=== PATIENT | male | born 1950 | race Caucasian/White ===

== ENCOUNTER 2016-12-29 17:43 | Emergency (ER) | payer MEDICARE, MEDICAID ==
[~2016-12-29] VITALS: Ht 175.3 cm; Wt 68.0 kg
[~2016-12-29 17:43] MED LIST: /CLOT10TR; /LANS30GR; AMLO5TAB2 PO; ARTHROTEC; ASPI1TAB PO; ASPI325T; ATEN50TA2; ATEN50TA2 PO; BISO10TA6 PO; CRES20TA PO; DARV100T; ENAL20TA; ENAL20TA PO; FISH1000 PO; FLON0.05; HYDR25TA6; LISI10TA2 PO; NITR0.4S; NITR4TASL SL; NUCY50TA PO; PREG100CA; SIMV40TA2; TYLENOL ES; VASO20TA; ZEBE5TAB
[2016-12-29] MEDS ORDERED: GOLYLQ PO (18:04)
[2016-12-29 20:15] LABS: BASO % 0.3 % (0.0-1.0); EOS # 0.1 K/mm3 (0.0-0.50); EOS % 1.5 % (0.0-3.0); LARGE UNSTAINED CELL # 0.1 K/mm3 (0.0-0.4); LARGE UNSTAINED CELL % 2.1 % (0.0-4.0); LYMPH # 1.8 K/mm3 (1.5-4.5); LYMPH % 28.2 % (24.0-44.0); MEAN CORPUSCULAR HEMOGLOBIN 32.6 pg (27.0-33.0); MEAN CORPUSCULAR HGB CONC 33.9 g/dl (32.0-36.5); MEAN CORPUSCULAR VOLUME 96.3 fl (80.0-96.0); MONO # 0.5 K/mm3 (0.0-0.8); MONO % 8.3 % (0.0-5.0); NEUTROPHILS # 3.5 K/mm3 (1.8-7.7); NEUTROPHILS % 59.6 % (36.0-66.0); PLATELET COUNT, AUTOMATED 169 k/mm3 (150-450); RED CELL DISTRIBUTION WIDTH 12.6 % (11.5-14.5); WHITE BLOOD COUNT 5.9 K/mm3 (4.0-10.0)
[2016-12-29 20:23] LABS: INR 0.95
[2016-12-29 20:30] LABS: ANION GAP 8 MEQ/L (8-16); BLOOD UREA NITROGEN 13 MG/DL (7-18); CARBON DIOXIDE LEVEL 28 MEQ/L (21-32); CHLORIDE LEVEL 100 MEQ/L (98-107); GLOMERULAR FILTRATION RATE > 60.0 (>49); GLUCOSE, FASTING 90 MG/DL (80-110); POTASSIUM SERUM 3.8 MEQ/L (3.5-5.1); SODIUM LEVEL 136 MEQ/L (136-145)
[2016-12-29 21:47] VITALS: BP 198/102
== END 2016-12-29 21:49 | disposition home or self-care (01) ==
LOC: M ED 19:00
DX: K62.5 Hemorrhage of anus and rectum (principal); I10 Essential (primary) hypertension; I25.10 Atherosclerotic heart disease of native coronary artery without angina pectoris; Z95.5 Presence of coronary angioplasty implant and graft; Z79.899 Other long term (current) drug therapy; Z79.82 Long term (current) use of aspirin; Z88.1 Allergy status to other antibiotic agents; Z88.5 Allergy status to narcotic agent; Z88.8 Allergy status to other drugs, medicaments and biological substances; Z87.891 Personal history of nicotine dependence

== ENCOUNTER → 2016-12-30 | Outpatient (CLI) | payer MEDICARE, MEDICAID ==
[~2016-12-30] VITALS: Ht 175.3 cm; Wt 68.0 kg
[~2016-12-30] MED LIST changes: +GOLYLQ PO; +LIDOCAINE 2% INJ 100 MG/5 ML SDV (FOR ANES.) As Ordered ONE; +NS 1,000 ML IV SCH; +PROPOFOL 500 MG/50 ML VIAL As Ordered ONE
--- NOTE | 2016-12-30 10:02 | ROOR ---
Patient Name: Ari Diaz Procedure Date: 12/30/2016 9:38 AM Date of : 1950 Age: 66 Room: [facility] Gender: Male Note Status: Finalized Procedure: Colonoscopy Indications: Surveillance: Personal history of piecemeal removal of large sessile adenoma on last colonoscopy (less than 1 year ago), Incidental - Hematochezia Providers: Seth SALAZAR MD Referring MD: Haydee LARKIN DO Requesting Provider: Medicines: Monitored Anesthesia Care Complications: No immediate complications. Procedure: Pre-Anesthesia Assessment: - The heart rate, respiratory rate, oxygen saturations, blood pressure, adequacy of pulmonary ventilation, and response to care were monitored throughout the procedure. The Colonoscope was introduced through the anus and advanced to the cecum, identified by appendiceal orifice and ileocecal valve. The colonoscopy was performed without difficulty. The patient tolerated the procedure well. The quality of the bowel preparation was good. Findings: The perianal and digital rectal examinations were normal. A small post polypectomy scar was found in the proximal ascending colon. There was no evidence of the previous polyp. No residual polyp tissue was seen. Two sessile polyps were found in the sigmoid colon and hepatic flexure. The polyps were 3 to 5 mm in size. These polyps were removed with a cold snare. Resection and retrieval were complete. A tattoo was seen in the mid sigmoid colon. A post-polypectomy scar was found at the tattoo site. Multiple small and large-mouthed diverticula were found in the sigmoid colon. Non-bleeding internal hemorrhoids were found during retroflexion. The hemorrhoids were medium-sized. The exam was otherwise normal throughout the examined colon. Impression: - Post-polypectomy scar in the proximal ascending colon. - Two 3 to 5 mm polyps in the sigmoid colon and at the hepatic flexure, removed with a cold snare. Resected and retrieved. - A tattoo was seen in the mid sigmoid colon. A post-polypectomy scar was found at the tattoo site. - Moderate diverticulosis in the sigmoid colon. - Non-bleeding but ulcerated/irritated internal hemorrhoids. Recommendation: - Repeat colonoscopy in 3 years for surveillance. - Use hydrocortisone suppository 30 mg 1 per rectum once a day for 1 week. - (the script was sent to your pharmacy on file) Seth Salazar MD Seth SALAZAR MD 12/30/2016 10:01:35 AM This report has been signed electronically. Number of Addenda: 0 Note Initiated On: 12/30/2016 9:38 AM Estimated Blood Loss: Estimated blood loss: none.
[2016-12-30 10:25] VITALS: BP 130/82
== END ==
LOC: M OPP 08:12
PROVIDERS: ATTEND Internal Medicine Gastroenterology
DX: Z09 Encounter for follow-up examination after completed treatment for conditions other than malignant neoplasm (principal); K92.1 Melena; Z86.010 Personal history of colon polyps; D12.5 Benign neoplasm of sigmoid colon; D12.3 Benign neoplasm of transverse colon; Z98.890 Other specified postprocedural states; K57.30 Diverticulosis of large intestine without perforation or abscess without bleeding; K64.8 Other hemorrhoids; I12.9 Hypertensive chronic kidney disease with stage 1 through stage 4 chronic kidney disease, or unspecified chronic kidney disease; I51.9 Heart disease, unspecified; N18.9 Chronic kidney disease, unspecified; K21.9 Gastro-esophageal reflux disease without esophagitis; J44.9 Chronic obstructive pulmonary disease, unspecified; Z86.73 Personal history of transient ischemic attack (TIA), and cerebral infarction without residual deficits; Z95.5 Presence of coronary angioplasty implant and graft; I25.10 Atherosclerotic heart disease of native coronary artery without angina pectoris; G62.9 Polyneuropathy, unspecified; Z79.82 Long term (current) use of aspirin; Z79.899 Other long term (current) drug therapy; Z88.5 Allergy status to narcotic agent; Z88.8 Allergy status to other drugs, medicaments and biological substances; Z91.89 Other specified personal risk factors, not elsewhere classified

== ENCOUNTER → 2018-05-04 | Outpatient (CLI) | payer MEDICARE, MEDICAID ==
[2018-05-04 09:16] LABS: ALBUMIN 3.7 GM/DL (3.2-5.2); ALBUMIN/GLOBULIN RATIO 1.09 (1.00-1.93); ALKALINE PHOSPHATASE 68 U/L (45-117); ALT/SGPT 27 U/L (12-78); ANION GAP 3 MEQ/L (8-16); AST/SGOT 10 U/L (7-37); BILIRUBIN,TOTAL 0.6 MG/DL (0.2-1.0); BLOOD UREA NITROGEN 17 MG/DL (7-18); CALCIUM LEVEL 8.7 MG/DL (8.8-10.2); CARBON DIOXIDE LEVEL 31 MEQ/L (21-32); CHLORIDE LEVEL 107 MEQ/L (98-107); CHOLESTEROL LEVEL 242 MG/DL (<200); CHOLESTEROL RISK RATIO 4.938 (<5); CREATININE FOR GFR 1.13 MG/DL (0.70-1.30); GLOMERULAR FILTRATION RATE > 60.0 (>49); GLUCOSE, FASTING 93 MG/DL (70-100); HDL CHOLESTEROL 49 MG/DL (>40); LDL CHOLESTEROL 152.4 MG/DL (<100); NON-HDL-C 193 MG/DL; SODIUM LEVEL 141 MEQ/L (136-145); TOTAL PROTEIN 7.1 GM/DL (6.4-8.2); TRIGLYCERIDES LEVEL 203 MG/DL (<150)
== END ==
LOC: M LAB 07:35
DX: I25.10 Atherosclerotic heart disease of native coronary artery without angina pectoris (principal); I11.9 Hypertensive heart disease without heart failure; E78.2 Mixed hyperlipidemia
CPT/HCPCS: 80053

== ENCOUNTER → 2020-04-25 | Outpatient (CLI) | payer MEDICARE, MEDICAID ==
[~2020-04-25] MED LIST changes: -ASPI1TAB PO; +ASPI81TA26 PO; +ATOR1TAB21 PO; -LIDOCAINE 2% INJ 100 MG/5 ML SDV (FOR ANES.) As Ordered ONE; +LISI-538 PO; +LISI10TA15 PO; -LISI10TA2 PO; -NS 1,000 ML IV SCH; -PROPOFOL 500 MG/50 ML VIAL As Ordered ONE
== END ==
LOC: M LABSMTC 11:06
PROVIDERS: ATTEND Anesthesiology
DX: Z01.818 Encounter for other preprocedural examination (principal); Z11.59 Encounter for screening for other viral diseases
CPT/HCPCS: C9803; U0003

== ENCOUNTER 2020-04-30 09:46 | Observation (INO) | payer MEDICARE, MEDICAID ==
[~2020-04-30] VITALS: Ht 172.7 cm; Wt 70.2 kg
[~2020-04-30 09:46] MED LIST changes: -ATOR1TAB21 PO; -LIDOCAINE 2% 100MG/5ML SDV (FOR ANES.) As Ordered ONE; -LISI-538 PO; -NS 1,000 ML IV ONE; -propofoL 200 MG/20 ML VIAL As Ordered ONE
[2020-04-30] MEDS ORDERED: atenoloL 50 MG TAB PO ONE (10:00)
[2020-04-30] MEDS ORDERED: atenoloL 25 MG TAB PO ONE (10:15)
[2020-04-30] MEDS ORDERED: CHLORTHALIDONE 12.5MG PER 1/2 TABLET PO ONE (12:30)
[2020-04-30] MEDS ORDERED: hydrALAZINE 20MG/ML 1ML VIAL (J0360 PER 20MG) IV STA (14:29)
[2020-04-30 15:06] LABS: BASO % 0.3 % (0.0-1.0); EOS % 0.4 % (0.0-3.0); HEMATOCRIT 50.5 % (42.0-52.0); HEMOGLOBIN 16.4 g/dl (13.5-17.5); LYMPH # 1.5 10^3/uL (1.5-5.0); LYMPH % 20.1 % (24.0-44.0); MEAN CORPUSCULAR HEMOGLOBIN 31.8 pg (27.0-33.0); MEAN CORPUSCULAR HGB CONC 32.5 g/dl (32.0-36.5); MEAN CORPUSCULAR VOLUME 97.9 fl (80.0-96.0); MONO # 0.6 10^3/uL (0.0-0.8); MONO % 8.3 % (0.0-5.0); NEUTROPHILS # 5.2 10^3/uL (1.5-8.5); NEUTROPHILS % 70.8 % (36.0-66.0); PLATELET COUNT, AUTOMATED 194 10^3/uL (150-450); RED BLOOD COUNT 5.16 10^6/uL (4.30-6.10); WHITE BLOOD COUNT 7.4 10^3/uL (4.0-10.0)
[2020-04-30 15:30] VITALS: BP_SYST 150; BP_SYST 220; BP_DIAS 108; BP_DIAS 68
[2020-04-30] MEDS ORDERED: hydrALAZINE 20MG/ML 1ML VIAL (J0360 PER 20MG) IV PRN (15:30)
[2020-04-30] MEDS ORDERED: NITROGLYCERIN 0.4 MG SUBL TABLET SL PRN (15:30)
[2020-04-30] MEDS ORDERED: CAPTOpril 6.25 MG PER 1/2 TABLET PO ONE (15:30)
--- NOTE | 2020-04-30 15:37 | HPEPDOC ---
General Date of Admission 04/30/20 Date of Service: Apr 30, 2020 Chief Complaint The patient is a 69-year-old male admitted with a reason for visit of Elevated Bp. Source: Patient Exam Limitations: No limitations Timing/Duration: 4-6 hours Severity: Moderate History of Present Illness Patient is 69 years old male with past medical history of adenomatous polyps, coronary artery diseases with cardiac stents, hypertension presented to the hospital with hypertensive urgency. Patient was sent to the emergency room from GI office, patient supposed to have colonoscopy today but he was found to have elevated blood pressure of 200/110. According to patient he missed his cardiac medications in the morning. In emergency room patient was found to have elevated blood pressure of 230/100, EKG did not show any acute ischemic changes, troponin negative. Patient denies any fever, chills, nausea, vomiting, chest pain, palpitations or dysuria Home Medications Scheduled Aspirin (Aspirin EC) 81 Mg Tab, 81 MG PO QHS, (Reported) Atenolol (Atenolol) 50 Mg Tab, 25 MG PO DAILY, (Reported) Scheduled PRN Nitroglycerin (Nitrostat) 0.4 Mg Subl, 0.4 MG SL Q5MP PRN for CHEST PAIN, (Reported) Allergies Coded Allergies: morphine (Verified Allergy, Unknown, UNKNOWN REACTION PER PT, 04/30/20) varenicline (Verified Adverse Reaction, Unknown, N/V, 04/30/20) Uncoded Allergies: ALL GENERIC DRUGS (Adverse Reaction, Unknown, OPEN SORES, 04/30/20) PT STATED HE IS ALLERGIC TO ALL GENERIC MEDICATIONS- PT CURRENTLY TAKING GENERIC ATENOLOL WITH NO REACTION Past Medical History Medical History Coronary artery diseases status post stent placement in 2004, hypertension, arthritis, history of adenomatous polyps, hyperlipidemia, GERD, COPD Surgical History Right shoulder, left knee repair Family History Mother from coronary artery diseases Social History * Smoker: former Smoker Alcohol: occationally Drugs: denies A-FIB/CHADSVASC A-FIB History Current/History of A-Fib/PAF?: No Current PO Anticoag Therapy: No Review of Systems Constitutional: Denies: Chills, Fever Eyes: Denies: Pain ENT: Denies: Head Aches Skin: Denies: Rash, Lesions Pulmonary: Denies: Dyspnea Cardiovascular: Denies: Chest Pain Gastrointestinal: Denies: Nausea, Vomiting Genitourinary: Denies: Dysuria Hematologic: Denies: Bruising Musculoskeletal: Denies: Neck Pain Neurological: Denies: Weakness Psych: Reports: Mood Normal Physical Examination General Exam: Positive: Alert, Cooperative Eye Exam: Positive: PERRLA ENT Exam: Positive: Atraumatic Neck Exam: Positive: Supple; Negative: JVD Chest Exam: Positive: Clear to auscultation Heart Exam: Positive: Rate Normal Telemetry: Positive: No significant arrhythmia Abdomen Exam: Positive: Normal bowel sounds Extremity Exam: Positive: Clubbing; Negative: Cyanosis Skin Exam: Positive: Nl turgor and temperature Neuro Exam: Positive: Normal Gait, Strength at 5/5 X4 ext Psych Exam: Positive: Mental status NL Vital Signs Vital Signs Date Time Temp Pulse Resp B/P (MAP) Pulse Ox O2 Delivery O2 Flow Rate FiO2 04/30/20 15:15 68 210/121 (150) 98 Room Air 04/30/20 14:30 18 04/30/20 12:05 99.7 Laboratory Data Labs 24H Laboratory Tests 2 04/30/20 10:01: Immature Granulocyte % (Auto) 0.1, Neutrophils (%) (Auto) 70.8H, Lymphocytes (%) (Auto) 20.1L, Monocytes (%) (Auto) 8.3H, Eosinophils (%) (Auto) 0.4, Basophils (%) (Auto) 0.3, Neutrophils # (Auto) 5.2, Lymphocytes # (Auto) 1.5, Monocytes # (Auto) 0.6, Eosinophils # (Auto) 0.0, Basophils # (Auto) 0.0, Nucleated Red Blood Cells % (auto) 0.0 04/30/20 10:28: POC Troponin I (Misc) 0.01 04/30/20 12:08: POC Glucose (Misc Panel) 100, POC Sodium (Misc Panel) 138, POC Potassium (Misc Panel) 5.1, POC Chloride (Misc Panel) 101, POC Total CO2 (Misc Panel) 28.0H, POC Blood Urea Nitrogen (Misc Panel 13, POC Ionized Calcium (Misc Panel) 4.3L, POC Creatinine (Misc Panel) 1.1, POC Hematocrit (Misc Panel) 51.0 CBC/BMP Laboratory Tests 04/30/20 10:01 Assessment/Plan Patient is 69 years old male with past medical history of adenomatous polyps, coronary artery diseases with cardiac stents, hypertension presented to the hospital with hypertensive urgency. Patient was sent to the emergency room from GI office, patient supposed to have colonoscopy today but he was found to have elevated blood pressure of 200/110. According to patient he missed his cardiac medications in the morning. In emergency room patient was found to have elevated blood pressure of 230/100, EKG did not show any acute ischemic changes, troponin negative. Patient denies any fever, chills, nausea, vomiting, chest pain, palpitations or dysuria Problems (1) Hypertensive urgency Status: Acute Problem Text: Patient missed his morning cardiac medications due to nausea secondary to bowel preparation for colonoscopy today Hydralazine IV with parameters Capoten with parameters (2) Coronary artery disease Status: Chronic Problem Text: Continue home cardioprotective medications I will add statin to his regimen. Patient will benefit from Сергей inhibitors as well Plan / VTE VTE Prophylaxis Ordered?: Yes RHODA SOSA DO Apr 30, 2020 15:36
[2020-04-30] MEDS: NS 1,000 ML IV SCH (15:54)
[2020-04-30] MEDS ORDERED: ACETAMINOPHEN TAB 650MG DOSE (2X325MG) PO PRN (16:00)
[2020-04-30 16:10] VITALS: BP 220/108
[2020-04-30] MEDS: ATORVASTATIN 20 MG TAB PO SCH (17:04)
[2020-04-30] MEDS: lisinopriL 20 MG TAB PO SCH (17:05)
[2020-04-30 18:20] VITALS: BP 188/110
[2020-04-30 20:00] VITALS: BP 134/78
--- NOTE | 2020-04-30 20:35 | ECGEPIP ---
[facility] - ED Test Date: 2020-04-30 Pat Name: THELMA BALTAZAR Department: Room: - Gender: Male [employer]: JUAN : 1950 Requested By: Carmen Mauro Order Number: [id number] Reading MD: Tejas Hammer Measurements Intervals [place] Rate: 85 P: 31 [place]: 147 QRS: -3 QRSD: 110 T: -21 QT: 377 QTc: 450 Interpretive Statements SINUS RHYTHM POSSIBLE INCOMPLETE RIGHT BUNDLE BRANCH BLOCK POSSIBLE LEFT VENTRICULAR HYPERTROPHY INFERIOR MYOCARDIAL INFARCTION, OF INDETERMINATE AGE NO PRIORS FOR COMPARISON Electronically Signed on 04-30-2020 20:34:48 EDT by Tejas Hammer
[2020-04-30] MEDS: HEPARIN SOD (PORCINE) 5000UNITS/ML 1ML VIAL/SYRINGE SC SCH (20:53)
[2020-04-30] MEDS ORDERED: ASPIRIN 81 MG ENTERIC TAB PO SCH (21:00)
[2020-05-01] VITALS: BP 124/78
[2020-05-01] MEDS: NS 1,000 ML IV SCH (01:50)
[2020-05-01 04:00] VITALS: BP 124/84
[2020-05-01 05:37] LABS: HEMATOCRIT 47.1 % (42.0-52.0); HEMOGLOBIN 15.3 g/dl (13.5-17.5); MEAN CORPUSCULAR HEMOGLOBIN 31.2 pg (27.0-33.0); MEAN CORPUSCULAR HGB CONC 32.5 g/dl (32.0-36.5); MEAN CORPUSCULAR VOLUME 96.1 fl (80.0-96.0); PLATELET COUNT, AUTOMATED 182 10^3/uL (150-450); WHITE BLOOD COUNT 5.4 10^3/uL (4.0-10.0)
[2020-05-01 05:59] LABS: BLOOD UREA NITROGEN 10 MG/DL (7-18); CALCIUM LEVEL 8.6 MG/DL (8.8-10.2); CARBON DIOXIDE LEVEL 27 MEQ/L (21-32); CHLORIDE LEVEL 108 MEQ/L (98-107); CREATININE FOR GFR 1.09 MG/DL (0.70-1.30); GLOMERULAR FILTRATION RATE > 60.0 (>49); GLUCOSE, FASTING 84 MG/DL (70-100); MAGNESIUM LEVEL 2.1 MG/DL (1.8-2.4); POTASSIUM SERUM 4.8 MEQ/L (3.5-5.1); SODIUM LEVEL 139 MEQ/L (136-145)
[2020-05-01 08:00] VITALS: BP 138/80
[2020-05-01] MEDS: HEPARIN SOD (PORCINE) 5000UNITS/ML 1ML VIAL/SYRINGE SC SCH (08:41)
[2020-05-01 08:42] VITALS: BP 138/80
[2020-05-01] MEDS: lisinopriL 20 MG TAB PO SCH (08:42)
[2020-05-01] MEDS: ATORVASTATIN 20 MG TAB PO SCH (08:42)
[2020-05-01] MEDS ORDERED: atenoloL 25 MG TAB PO SCH (09:00)
[2020-05-01] MEDS ORDERED: ATOR1TAB21 PO (10:17)
[2020-05-01] MEDS ORDERED: LISI-538 PO (10:17)
[2020-05-01 12:00] VITALS: BP 172/100
[2020-05-01 12:30] VITALS: BP 117/67
--- NOTE | 2020-05-01 14:01 | DS.PDOC ---
Discharge Summary General Date of Admission Apr 30, 2020 at 09:47 Date of Discharge 05/01/2020 Discharge Summary PROCEDURES PERFORMED DURING STAY: [None]. ADMITTING DIAGNOSES: 1. Hypertensive Urgency 2. Coronary Artery Disease DISCHARGE DIAGNOSES: 1. Hypertensive Urgency - resvolved 2. Coronary artery disease COMPLICATIONS/CHIEF COMPLAINT: Hypertenstive Urgency. HISTORY OF PRESENT ILLNESS: Patient is 69 years old male with past medical history of adenomatous polyps, coronary artery diseases with cardiac stents, hypertension presented to the hospital with hypertensive urgency. Patient was sent to the emergency room from GI office, patient supposed to have colonoscopy today but he was found to have elevated blood pressure of 200/110. According to patient he missed his cardiac medications in the morning. In emergency room patient was found to have elevated blood pressure of 230/100, EKG did not show any acute ischemic changes, troponin negative. Patient denies any fever, chills, nausea, vomiting, chest pain, palpitations or dysuria HOSPITAL COURSE: After admission Mr. Diaz continued to receive his home medications including atenolol 25 mg and aspirin 81 mg. He also received a one time captopril dose as well as lisinopril 20 mg. His blood pressure responded well to these initial therapies. He did initially receive normal saline maintenance therapy but this was stopped in the morning after admission. He was on a 2 gram sodium diet during his stay. DISCHARGE MEDICATIONS: Please see below. ALLERGIES: Please see below. PHYSICAL EXAMINATION ON DISCHARGE: VITAL SIGNS: Please see below. GENERAL: well nourished and disheveled male laying in bed in no apparent distress HEENT: EOMI. Conjunctiva clear and no lymphadopathy appreciable CARDIOVASCULAR EXAMINATION: RRR with no murmurs, rubs, gallops. +S1, S2 RESPIRATORY EXAMINATION: Lungs CTA B/L. No wheezing, rales, rhonchi ABDOMINAL EXAMINATION: Nontender and soft. No organomegaly, discolorations, bruising noted. EXTREMITIES: No peripheral edema, no unilateral leg swelling LABORATORY DATA: Please see below. IMAGING: N/A PROGNOSIS: good ACTIVITY: [As tolerated]. DIET: As tolerated DISCHARGE PLAN: DISCHARGE INSTRUCTIONS: 1. Please continue to take medications as prescribed 2. Please establish care with primary care provider 3. Please follow up with Dr. Bhatt in 1-2 weeks DISCHARGE CONDITION: [Stable]. TIME SPENT ON DISCHARGE: 32 minutes. I have personally evaluated and examined the patient. Discussed with resident/student regarding plan of care and agree with the above assessment and plan. Vital Signs/I&Os Vital Signs Date Time Temp Pulse Resp B/P (MAP) Pulse Ox O2 Delivery O2 Flow Rate FiO2 05/01/20 12:30 117/67 (84) 05/01/20 12:00 98.5 61 20 98 Room Air I&O- Last 24 Hours up to 6 AM 05/01/20 06:00 Intake Total 1300 ml Output Total 725 ml Balance 575 ml Laboratory Data Labs 24H Laboratory Tests 2 05/01/20 05:10: Nucleated Red Blood Cells % (auto) 0.0, Anion Gap 4L, Glomerular Filtration Rate > 60.0, Calcium Level 8.6L, Magnesium Level 2.1 CBC/BMP Laboratory Tests 05/01/20 05:10 Discharge Medications Scheduled Aspirin (Aspirin EC) 81 Mg Tab, 81 MG PO QHS, (Reported) Atenolol (Atenolol) 50 Mg Tab, 25 MG PO DAILY, (Reported) Atorvastatin Calcium (Atorvastatin Calcium) 20 Mg Tablet, 40 MG PO DAILY Lisinopril (Lisinopril) 20 Mg Tablet, 20 MG PO DAILY Scheduled PRN Nitroglycerin (Nitrostat) 0.4 Mg Subl, 0.4 MG SL Q5MP PRN for CHEST PAIN, (Reported) Allergies Coded Allergies: morphine (Unverified Allergy, Unknown, UNKNOWN REACTION PER PT, 04/30/20) varenicline (Verified Adverse Reaction, Mild, N/V, 04/30/20) Uncoded Allergies: ALL GENERIC DRUGS (Adverse Reaction, Unknown, OPEN SORES, 04/30/20) PT STATED HE IS ALLERGIC TO ALL GENERIC MEDICATIONS- PT CURRENTLY TAKING GENERIC ATENOLOL WITH NO REACTION NIRMALA RODRIGUEZ-3 May 01, 2020 14:01 ANGEL TRUJILLO MD May 01, 2020 19:12
== END 2020-05-01 13:00 | disposition home or self-care (01) ==
LOC: M ED 09:46 → M ED INP 09:47 → ENRESERV 15:28 → M PCU 16:10
PROVIDERS: ADMIT Internal Medicine; ATTEND Internal Medicine
DX: I16.0 Hypertensive urgency (principal); I11.9 Hypertensive heart disease without heart failure; I25.10 Atherosclerotic heart disease of native coronary artery without angina pectoris; Z95.5 Presence of coronary angioplasty implant and graft; E78.5 Hyperlipidemia, unspecified; M19.90 Unspecified osteoarthritis, unspecified site; K21.9 Gastro-esophageal reflux disease without esophagitis; J44.9 Chronic obstructive pulmonary disease, unspecified; Z79.899 Other long term (current) drug therapy; Z79.82 Long term (current) use of aspirin; Z88.5 Allergy status to narcotic agent; Z88.8 Allergy status to other drugs, medicaments and biological substances; Z87.891 Personal history of nicotine dependence; Z86.73 Personal history of transient ischemic attack (TIA), and cerebral infarction without residual deficits; Z86.010 Personal history of colon polyps
CPT/HCPCS: 36415; 80047; 80048; 83735; 84484; 85025; 85027; 93005; 93041; 96372; 96374; 96376; 99285; G0378; J0360; J1644

== ENCOUNTER → 2020-04-30 | Day surgery (SDC) | payer MEDICARE, MEDICAID ==
[~2020-04-30] VITALS: Ht 172.7 cm; Wt 72.6 kg
[~2020-04-30] MED LIST changes: +LIDOCAINE 2% 100MG/5ML SDV (FOR ANES.) As Ordered ONE; +NS 1,000 ML IV ONE; +propofoL 200 MG/20 ML VIAL As Ordered ONE
== END | disposition still patient (30) ==
LOC: M OPP 09:26
PROVIDERS: ATTEND Internal Medicine Gastroenterology
DX: Z86.010 Personal history of colon polyps (principal); Z53.09 Procedure and treatment not carried out because of other contraindication

== ENCOUNTER → 2020-06-23 | Outpatient (CLI) | payer MEDICARE, MEDICAID ==
[~2020-06-23] MED LIST changes: +ATOR1TAB21 PO; +LISI-538 PO
[2020-06-23 13:30] LABS: BLOOD UREA NITROGEN 15 MG/DL (7-18); CALCIUM LEVEL 9.5 MG/DL (8.8-10.2); CARBON DIOXIDE LEVEL 29 MEQ/L (21-32); CHLORIDE LEVEL 101 MEQ/L (98-107); CREATININE FOR GFR 1.13 MG/DL (0.70-1.30); GLOMERULAR FILTRATION RATE > 60.0 (>49); GLUCOSE, FASTING 119 MG/DL (70-100); POTASSIUM SERUM 4.9 MEQ/L (3.5-5.1); SODIUM LEVEL 135 MEQ/L (136-145)
== END ==
LOC: M LAB 11:22
PROVIDERS: ATTEND Physician Assistant
DX: I11.9 Hypertensive heart disease without heart failure (principal)

== ENCOUNTER → 2020-06-25 | Outpatient (CLI) | payer MEDICARE, MEDICAID ==
--- NOTE | 2020-07-17 08:43 | REP ---
CERVICAL SPINE SERIES: 06/25/20 CLINICAL: Neck pain. TECHNIQUE: AP, lateral, flexion/extension, bilateral oblique and open mouthed views of the cervical spine. FINDINGS: Advanced degenerative changes are noted at C6-7 and C5-6 including endplate sclerosis, marginal spurring and disc space narrowing. Associated facet arthropathy and foraminal narrowing are suggested. Moderate degenerative changes noted throughout the remainder of the cervical spine with mild endplate sclerosis, marginal spurring and decreased disc space involving C3-4 and C4-5. There is no evidence for acute fracture, compression injury or subluxation. C1 and C2 articulation and odontoid process are normal. IMPRESSION: 1. Moderate to advanced degenerative changes as noted above. MTDD
== END ==
LOC: M RAD 09:58
PROVIDERS: ATTEND Family Medicine Addiction Medicine
DX: M50.322 Other cervical disc degeneration at C5-C6 level (principal); M50.323 Other cervical disc degeneration at C6-C7 level; M25.78 Osteophyte, vertebrae

== ENCOUNTER → 2020-08-13 | Outpatient (CLI) | payer MEDICARE, MEDICAID ==
--- NOTE | 2020-08-13 14:46 | REP ---
INDICATION: OTHER INTERVERTEBRAL DISC DEGENERATION, LUMBOSACRAL REGION. COMPARISON: Comparison is made with images from MRI study of the lumbar spine from May 13, 2014.. TECHNIQUE: Five views. FINDINGS: Lumbar vertebral body heights are preserved. There is straightening. A grade 1 degenerative 8 mm L3-4 spondylolisthesis is seen. This is felt to be unchanged. It measures 7 mm by MRI in 2013. There is slight retrolisthesis at L4-5 which is also felt to be unchanged. This measures 4 mm. Advanced degenerative disc disease is seen at L3-4, L4-5, and L5-S1 with disc space narrowing and vacuum phenomena. There is reactive sclerosis and osteophyte formation at these levels. Degenerative disc disease is also present to a lesser extent at the other lumbar levels. Discogenic spurring is seen in the visible lower thoracic disc levels. On oblique and frontal views there is marked osteoarthritic facet disease with sclerosis, hypertrophy and spur formation, and joint space narrowing. This is most pronounced at L3-4 and L4-5 bilaterally. At L4-5 and L5-S1, the facet sclerotic changes are more pronounced on the left than the right. No bony destructive lesion is seen. Sacrum and SI joints appear intact. Psoas margins are symmetric. There is some vascular calcification. IMPRESSION: Advanced degenerative disc disease and osteoarthritic facet disease as noted. There is a degenerative spondylolisthesis at L3-4 and retrolisthesis at L4-5 which are felt to be unchanged. <Electronically signed by Sami Roa > 08/13/20 [id number]
== END ==
LOC: M RAD 10:02
PROVIDERS: ATTEND Family Medicine Addiction Medicine
DX: M51.37 Other intervertebral disc degeneration, lumbosacral region (principal); M46.96 Unspecified inflammatory spondylopathy, lumbar region

== ENCOUNTER → 2020-09-26 | Outpatient (CLI) | payer MEDICARE, MEDICAID ==
[~2020-09-26] MED LIST changes: +AMLO1TAB24 PO
== END ==
LOC: M LABSMTC 08:49
PROVIDERS: ATTEND Anesthesiology
DX: Z01.818 Encounter for other preprocedural examination (principal); Z20.828 Contact with and (suspected) exposure to other viral communicable diseases

== ENCOUNTER 2020-10-01 07:30 | Day surgery (SDC) | payer MEDICARE, MEDICAID ==
[~2020-10-01] VITALS: Ht 167.6 cm; Wt 77.1 kg
[~2020-10-01 07:30] MED LIST changes: +LIDOCAINE 2% 100MG/5ML SDV (FOR ANES.) As Ordered ONE; +NS 1,000 ML IV ONE; +propofoL 200 MG/20 ML VIAL As Ordered ONE
--- NOTE | 2020-10-01 09:21 | ROOR ---
Patient Name: Ari Ybarra Procedure Date: 10/01/2020 8:43 AM Date of : 1950 Age: 69 Room: [facility] Gender: Male Note Status: Finalized Procedure: Colonoscopy Indications: High risk colon cancer surveillance: Personal history of colonic polyps, Last colonoscopy: December 2016 Providers: Seth MOISE MD Referring MD: Moe GUEVARA MD Requesting Provider: Medicines: Monitored Anesthesia Care Complications: No immediate complications. Procedure: Pre-Anesthesia Assessment: - The heart rate, respiratory rate, oxygen saturations, blood pressure, adequacy of pulmonary ventilation, and response to care were monitored throughout the procedure. The Colonoscope was introduced through the anus and advanced to the terminal ileum, with identification of the appendiceal orifice and IC valve. The colonoscopy was performed without difficulty. The patient tolerated the procedure well. The quality of the bowel preparation was unsatisfactory--Large volume lavage performed to get adequate visualisation. Prep in the end was adequate. Findings: The perianal and digital rectal examinations were normal. Four sessile polyps were found in the hepatic flexure, ascending colon and cecum. The polyps were 4 to 8 mm in size. These polyps were removed with a cold snare. Resection and retrieval were complete. A 5 mm polyp was found in the sigmoid colon. The polyp was sessile. The polyp was removed with a cold snare. Resection and retrieval were complete. Retroflexion in the right colon was performed. Internal hemorrhoids were found during retroflexion. The hemorrhoids were moderate. Impression: - Preparation of the colon was adequate after lavage. - Four 4 to 8 mm polyps at the hepatic flexure, in the ascending colon and in the cecum, removed with a cold snare. Resected and retrieved. - One 5 mm polyp in the sigmoid colon, removed with a cold snare. Resected and retrieved. - A tattoo (placed in 2009 for large polyp) was seen in distal sigmoid. No residual polyp was seen at this site - Internal hemorrhoids. Recommendation: - Telephone endoscopist for pathology results in 2 weeks. - Await pathology results. - Repeat colonoscopy in 3 years for surveillance. Procedure Code(s): --- Professional --- 39095, Colonoscopy, flexible; with removal of tumor(s), polyp(s), or other lesion(s) by snare technique Diagnosis Code(s): --- Professional --- K64.8, Other hemorrhoids Z86.010, Personal history of colonic polyps K63.5, Polyp of colon CPT copyright 2019 [employer]. All rights reserved. The codes documented in this report are preliminary and upon fish culturist review may be revised to meet current compliance requirements. Seth Moise MD Seth MOISE MD 10/01/2020 9:21:33 AM Electronically signed by Seth MOISE MD Number of Addenda: 0 Note Initiated On: 10/01/2020 8:43 AM Estimated Blood Loss: Estimated blood loss: none.
[2020-10-01 09:40] VITALS: BP 169/96
== END 2020-10-01 09:54 | disposition home or self-care (01) ==
LOC: M OPP 07:30
PROVIDERS: ATTEND Internal Medicine Gastroenterology
DX: Z12.11 Encounter for screening for malignant neoplasm of colon (principal); Z86.010 Personal history of colon polyps; K63.5 Polyp of colon; K64.8 Other hemorrhoids

== ENCOUNTER → 2020-12-03 | Outpatient (REF) | payer MEDICARE, MEDICAID ==
[~2020-12-03] MED LIST changes: -LIDOCAINE 2% 100MG/5ML SDV (FOR ANES.) As Ordered ONE; -LISI-538 PO; +LISI20TA33 PO; -NS 1,000 ML IV ONE; -propofoL 200 MG/20 ML VIAL As Ordered ONE
[2020-12-03 13:14] LABS: ALBUMIN 4.1 GM/DL (3.2-5.2); ALT/SGPT 23 U/L (12-78); BILIRUBIN,TOTAL 0.5 MG/DL (0.2-1.0); BLOOD UREA NITROGEN 20 MG/DL (7-18); CALCIUM LEVEL 9.5 MG/DL (8.8-10.2); CARBON DIOXIDE LEVEL 27 MEQ/L (21-32); CHLORIDE LEVEL 102 MEQ/L (98-107); CHOLESTEROL LEVEL 235 MG/DL (<200); CHOLESTEROL RISK RATIO 6.714 (<5); CREATININE FOR GFR 1.21 MG/DL (0.70-1.30); GLOMERULAR FILTRATION RATE > 60.0 (>49); GLUCOSE, FASTING 104 MG/DL (70-100); HDL CHOLESTEROL 35 MG/DL (>40); LDL CHOLESTEROL 152 MG/DL (<100); NON-HDL-C 200 MG/DL; POTASSIUM SERUM 4.8 MEQ/L (3.5-5.1); SODIUM LEVEL 136 MEQ/L (136-145); TOTAL PROTEIN 7.5 GM/DL (6.4-8.2); TRIGLYCERIDES LEVEL 241 MG/DL (<150)
== END ==
LOC: M LAB REF 11:38
PROVIDERS: ATTEND Family Medicine Addiction Medicine
DX: E78.5 Hyperlipidemia, unspecified (principal)

== ENCOUNTER 2021-01-01 12:43 | Outpatient (RCR) | payer MEDICARE, MEDICAID | END 2021-01-13 | LOC: M PT 12:43 | PROVIDERS: ATTEND Family Medicine Addiction Medicine | DX: M51.37 Other intervertebral disc degeneration, lumbosacral region (principal) ==

== ENCOUNTER 2022-03-02 10:59 | Inpatient (IN) | payer MEDICARE, MEDICAID ==
[~2022-03-02] VITALS: Ht 172.7 cm; Wt 72.0 kg
[~2022-03-02 10:59] MED LIST changes: -LISI10TA15 PO; +LISI10TA24 PO
[2022-03-02 14:18] LABS: BASO % 0.4 % (0.0-1.0); EOS % 0.2 % (0.0-3.0); HEMATOCRIT 50.9 % (42.0-52.0); HEMOGLOBIN 16.6 g/dl (13.5-17.5); LYMPH # 1.9 10^3/uL (1.5-5.0); LYMPH % 17.9 % (24.0-44.0); MEAN CORPUSCULAR HEMOGLOBIN 30.8 pg (27.0-33.0); MEAN CORPUSCULAR HGB CONC 32.6 g/dl (32.0-36.5); MEAN CORPUSCULAR VOLUME 94.4 fl (80.0-96.0); MONO # 1.2 10^3/uL (0.0-0.8); MONO % 11.4 % (2.0-8.0); NEUTROPHILS # 7.6 10^3/uL (1.5-8.5); NEUTROPHILS % 69.7 % (36.0-66.0); PLATELET COUNT, AUTOMATED 276 10^3/uL (150-450); RED BLOOD COUNT 5.39 10^6/uL (4.30-6.10); WHITE BLOOD COUNT 10.8 10^3/uL (4.0-10.0)
[2022-03-02 14:40] LABS: ERYTHROCYTE SEDIMENTATION RATE 30 mm/hr (0-20)
[2022-03-02 14:40] LABS: C REACTIVE PROTEIN QUANTITATIV 13.5 MG/DL (0.00-0.30); CALCIUM LEVEL 10.5 MG/DL (8.8-10.2); CREATININE FOR GFR 1.46 MG/DL (0.70-1.30); POTASSIUM SERUM 4.4 MEQ/L (3.5-5.1)
[2022-03-02] MEDS ORDERED: ceFAZolin SOD 2 GM in IV 1 EA IV ONE (15:00)
[2022-03-02 15:01] LABS: RSV AMPLIFICATION NEGATIVE (NEGATIVE)
[2022-03-02] MEDS ORDERED: ACETAMINOPHEN 500 MG TAB PO ONE (16:00)
[2022-03-02] MEDS ORDERED: NS 1,000 ML IV ONE (16:00)
[2022-03-02] MEDS ORDERED: ACETAMINOPHEN TAB 650MG DOSE (2X325MG) PO PRN (16:40)
[2022-03-02] MEDS ORDERED: KETOROLAC 30 MG/ML 1ML VIAL IV PRN (16:40)
[2022-03-02] MEDS ORDERED: VANCOMYCIN HCL 1,000 MG, VIAL MATE ADAPTER 1 EACH in NS 250 ML IV SCH (16:45)
[2022-03-02] MEDS ORDERED: ASPI-161 PO (16:58)
[2022-03-02] MEDS ORDERED: HOME MED LIST COMPLETE! XX SCH (17:00)
[2022-03-02] MEDS ORDERED: NITROGLYCERIN 0.4 MG SUBL TABLET SL PRN (17:30)
[2022-03-02] MEDS: NS 1,000 ML IV SCH (17:30)
[2022-03-02] MEDS ORDERED: LORazepam 2 MG TAB PO PRN (17:40)
[2022-03-02 18:11] LABS: INR 1.03; PROTHROMBIN TIME 13.9 SECONDS (12.7-14.5)
[2022-03-02 18:12] LABS: PARTIAL THROMBOPLASTIN TIME 38.1 SECONDS (25.9-37.0)
[2022-03-02] MEDS ORDERED: VANCOMYCIN HCL 750 MG, VIAL MATE ADAPTER 1 EACH in NS 250 ML IV ONE ×2 (19:00→20:00)
[2022-03-02 19:07] LABS: URIC ACID 5.7 MG/DL (3.5-7.2)
[2022-03-02] MEDS: AMPICILLIN SOD/SULBACTAM SOD 3 GM in D5W MINI-BAG PLUS 100 ML IV SCH (19:30)
[2022-03-02] MEDS: LACTOBACILLUS ACIDOPHILUS CAP (BACID) PO SCH (19:42)
[2022-03-02] MEDS: HEPARIN SOD (PORCINE) 5000UNITS/ML 1ML VIAL/SYRINGE SQ SCH (21:27)
[2022-03-02] MEDS: THIAMINE 100 MG TAB PO SCH (21:27)
[2022-03-02] MEDS: atenoloL 50 MG TAB PO SCH (21:27)
[2022-03-02 21:32] VITALS: BP 178/110
[2022-03-02 22:02] VITALS: BP 178/110
[2022-03-02] MEDS ORDERED: oxyCODONE 5MG TAB PO ONE (22:10)
[2022-03-02] MEDS ORDERED: ASPIRIN 325 MG TAB PO ONE (22:10)
[2022-03-02] MEDS: **hydrALAZINE** 10 MG TAB PO PRN (22:22)
[2022-03-02 23:17] VITALS: BP 170/112
[2022-03-02] MEDS ORDERED: LABETALOL 100MG/20ML VIAL IV ONE (23:20)
[2022-03-02 23:50] VITALS: BP 168/78
[2022-03-03] VITALS (10 sets, daily range): BP systolic 132–176; BP diastolic 81–107
[2022-03-03] MEDS: AMPICILLIN SOD/SULBACTAM SOD 3 GM in D5W MINI-BAG PLUS 100 ML IV SCH ×5 (01:09→23:23)
[2022-03-03] MEDS: **hydrALAZINE** 10 MG TAB PO PRN ×3 (04:38→20:29)
[2022-03-03 05:12] LABS: HEMATOCRIT 43.3 % (42.0-52.0); MEAN CORPUSCULAR HEMOGLOBIN 30.4 pg (27.0-33.0); MEAN CORPUSCULAR VOLUME 91.9 fl (80.0-96.0); PLATELET COUNT, AUTOMATED 210 10^3/uL (150-450); RED BLOOD COUNT 4.71 10^6/uL (4.30-6.10); WHITE BLOOD COUNT 7.4 10^3/uL (4.0-10.0)
[2022-03-03 05:17] LABS: HEMOGLOBIN 14.3 g/dl (13.5-17.5)
[2022-03-03 05:44] LABS: ALBUMIN 3.3 GM/DL (3.2-5.2); ALT/SGPT 18 U/L (12-78); BILIRUBIN,TOTAL 0.6 MG/DL (0.2-1.0); BLOOD UREA NITROGEN 27 MG/DL (7-18); C REACTIVE PROTEIN QUANTITATIV 7.75 MG/DL (0.00-0.30); CALCIUM LEVEL 9.1 MG/DL (8.8-10.2); CARBON DIOXIDE LEVEL 25 MEQ/L (21-32); CHLORIDE LEVEL 105 MEQ/L (98-107); CREATININE FOR GFR 1.26 MG/DL (0.70-1.30); GLOMERULAR FILTRATION RATE > 60.0 (>49); GLUCOSE, FASTING 101 MG/DL (70-100); POTASSIUM SERUM 4.1 MEQ/L (3.5-5.1); SODIUM LEVEL 136 MEQ/L (136-145); TOTAL PROTEIN 6.9 GM/DL (6.4-8.2)
[2022-03-03 05:49] LABS: ERYTHROCYTE SEDIMENTATION RATE 28 mm/hr (0-20)
[2022-03-03] MEDS: HEPARIN SOD (PORCINE) 5000UNITS/ML 1ML VIAL/SYRINGE SQ SCH ×3 (06:44→21:46)
[2022-03-03] MEDS: NS 1,000 ML IV SCH ×2 (07:19→14:06)
[2022-03-03] MEDS: VANCOMYCIN HCL 750 MG, VIAL MATE ADAPTER 1 EACH in NS 250 ML IV SCH (07:35)
[2022-03-03 07:48] LABS: VANCOMYCIN RANDOM 16.2 UG/ML
[2022-03-03] MEDS: FOLIC ACID 1 MG TAB PO SCH (08:30)
[2022-03-03] MEDS: THIAMINE 100 MG TAB PO SCH ×2 (08:30→20:28)
[2022-03-03] MEDS: LACTOBACILLUS ACIDOPHILUS CAP (BACID) PO SCH ×2 (08:30→17:14)
[2022-03-03] MEDS: MULTIVITAMINS/MINERALS THERAP 1 TAB PO SCH (08:30)
[2022-03-03] MEDS: ASPIRIN 81MG ENTERIC TABLET PO SCH (08:30)
[2022-03-03] MEDS: VANCOMYCIN HCL 500 MG in D5W MINI-BAG PLUS 100 ML IV SCH (08:31)
[2022-03-03] MEDS ORDERED: PREVNAR 13 VACCINE SYRINGE IM ONE (16:00)
[2022-03-03] MEDS: atenoloL 50 MG TAB PO SCH (20:30)
[2022-03-03] MEDS ORDERED: hydrALAZINE 20MG/ML 1ML VIAL (J0360 PER 20MG) IV ONE (23:40)
[2022-03-04] VITALS: BP 129/75
[2022-03-04 04:00] VITALS: BP 148/77
[2022-03-04] MEDS: NS 1,000 ML IV SCH (04:40)
[2022-03-04] MEDS: HEPARIN SOD (PORCINE) 5000UNITS/ML 1ML VIAL/SYRINGE SQ SCH (05:02)
[2022-03-04] MEDS: AMPICILLIN SOD/SULBACTAM SOD 3 GM in D5W MINI-BAG PLUS 100 ML IV SCH (05:02)
[2022-03-04 05:20] LABS: HEMATOCRIT 39.8 % (42.0-52.0); HEMOGLOBIN 13.2 g/dl (13.5-17.5); MEAN CORPUSCULAR HGB CONC 33.2 g/dl (32.0-36.5); MEAN CORPUSCULAR VOLUME 93.4 fl (80.0-96.0); PLATELET COUNT, AUTOMATED 195 10^3/uL (150-450); RED BLOOD COUNT 4.26 10^6/uL (4.30-6.10); WHITE BLOOD COUNT 6.4 10^3/uL (4.0-10.0)
[2022-03-04 05:44] LABS: ALBUMIN 2.9 GM/DL (3.2-5.2); ALT/SGPT 13 U/L (12-78); BILIRUBIN,TOTAL 0.5 MG/DL (0.2-1.0); BLOOD UREA NITROGEN 14 MG/DL (7-18); C REACTIVE PROTEIN QUANTITATIV 3.46 MG/DL (0.00-0.30); CALCIUM LEVEL 8.9 MG/DL (8.8-10.2); CARBON DIOXIDE LEVEL 24 MEQ/L (21-32); CHLORIDE LEVEL 112 MEQ/L (98-107); CREATININE FOR GFR 0.94 MG/DL (0.70-1.30); GLOMERULAR FILTRATION RATE > 60.0 (>49); GLUCOSE, FASTING 93 MG/DL (70-100); POTASSIUM SERUM 4.3 MEQ/L (3.5-5.1); SODIUM LEVEL 141 MEQ/L (136-145); TOTAL PROTEIN 6.4 GM/DL (6.4-8.2)
[2022-03-04 06:00] VITALS: BP 154/86
[2022-03-04] MEDS: VANCOMYCIN HCL 750 MG, VIAL MATE ADAPTER 1 EACH in NS 250 ML IV SCH (06:16)
[2022-03-04] MEDS ORDERED: BACT800T5 PO (07:23)
[2022-03-04] MEDS ORDERED: PROB1CAP10 PO (07:24)
[2022-03-04] MEDS ORDERED: ACET-907 PO (07:34)
[2022-03-04 08:14] VITALS: BP 164/94
[2022-03-04] MEDS: ASPIRIN 81MG ENTERIC TABLET PO SCH (08:16)
[2022-03-04] MEDS: VANCOMYCIN HCL 500 MG in D5W MINI-BAG PLUS 100 ML IV SCH (08:16)
[2022-03-04] MEDS: MULTIVITAMINS/MINERALS THERAP 1 TAB PO SCH (08:16)
[2022-03-04] MEDS: LACTOBACILLUS ACIDOPHILUS CAP (BACID) PO SCH (08:16)
[2022-03-04] MEDS: THIAMINE 100 MG TAB PO SCH (08:16)
[2022-03-04] MEDS: FOLIC ACID 1 MG TAB PO SCH (08:16)
[2022-03-04 08:19] VITALS: BP 164/94
[2022-03-04] MEDS: **hydrALAZINE** 10 MG TAB PO PRN (08:19)
== END 2022-03-04 11:35 | disposition home or self-care (01) | DRG 603 ==
LOC: M ED 10:59 → M ED INP 16:39 → M PCU 16:39 → M MS5PR 21:14 → M PCU 23:48
PROVIDERS: ADMIT Internal Medicine; ATTEND Internal Medicine
DX: L03.114 Cellulitis of left upper limb (principal); N17.9 Acute kidney failure, unspecified; I10 Essential (primary) hypertension; E78.5 Hyperlipidemia, unspecified; I25.10 Atherosclerotic heart disease of native coronary artery without angina pectoris; R25.1 Tremor, unspecified; M54.9 Dorsalgia, unspecified; E83.52 Hypercalcemia; Z87.891 Personal history of nicotine dependence; Z79.82 Long term (current) use of aspirin; Z95.5 Presence of coronary angioplasty implant and graft; Z79.899 Other long term (current) drug therapy; Z72.89 Other problems related to lifestyle

== ENCOUNTER → 2022-03-07 | Outpatient (CLI) | payer MEDICARE, MEDICAID ==
[~2022-03-07] MED LIST changes: +ACET-907 PO; +ASPI-161 PO; +BACT800T5 PO; +PROB1CAP10 PO
== END ==
LOC: M SOG 10:14
PROVIDERS: ATTEND Orthopaedic Surgery Hand Surgery
DX: M25.532 Pain in left wrist (principal); M25.531 Pain in right wrist

== ENCOUNTER → 2023-01-26 | Outpatient (CLI) | payer MEDICARE, MEDICAID | LOC: M RAD 08:58 | PROVIDERS: ATTEND Family Medicine Addiction Medicine | DX: N43.3 Hydrocele, unspecified (principal) ==

== ENCOUNTER → 2025-02-28 | Outpatient (CLI) | payer MEDICARE, MEDICAID ==
[~2025-02-28] MED LIST changes: -ASPI-161 PO; +ASPI-615 PO
== END ==
LOC: M PLAIMG 02-24 06:59 → M RAD 06:59
PROVIDERS: ATTEND Internal Medicine Cardiovascular Disease
DX: R94.39 Abnormal result of other cardiovascular function study (principal); R91.1 Solitary pulmonary nodule; I71.21 Aneurysm of the ascending aorta, without rupture

== ENCOUNTER → 2025-05-09 | Outpatient (CLI) | payer MEDICARE, MEDICAID | LOC: M RAD 09:54 | PROVIDERS: ATTEND Surgery | DX: I71.40 Abdominal aortic aneurysm, without rupture, unspecified (principal) ==

== ENCOUNTER → 2025-05-27 | Outpatient (CLI) | payer MEDICARE, MEDICAID | LOC: M RADPRO 07:31 | PROVIDERS: ATTEND Internal Medicine Pulmonary Disease | DX: J98.6 Disorders of diaphragm (principal) ==

== ENCOUNTER → 2025-09-29 | Outpatient (CLI) | payer MEDICARE, MEDICAID | LOC: M PLAIMG 14:55 | PROVIDERS: ATTEND Internal Medicine Pulmonary Disease | DX: R91.1 Solitary pulmonary nodule (principal) ==